=== PATIENT | female | born 1995 | race African-American/Black ===

== ENCOUNTER 2017-01-12 12:18 | Emergency (ER) | payer OTHER ==
--- NOTE | ~2017-01-12 | US84 ---
[id number] [address] [id number] E MR#: [id number] Acc #: [id number] NAME: EMILY COLLINS : 1995 SEX: F STUDY DATE/TIME: 01/12/2017 14:25 UNIT: SED ROOM: STUDY DESCRIPTION: US LE Veins Complete Shawn Stdy Attending Physician: Luis Angel Botello Ordering Physician: Physician Non-Staff Primary Care Physician: Gabriela Severino MEDICAL IMAGING REPORT This report is preliminary unless electronic signature is present. EXAM Bilateral lower extremity Doppler venous ultrasound, 01/12/2017. HISTORY Bilateral lower extremity swelling/edema for 1 week. COMPARISON None TECHNIQUE Real-time sun-scale, color Doppler, and SPECTRAL Doppler images were performed from the bilateral lower extremity veins from the groin through the calf regions. The study, according to the technologist, is technically challenging and limited secondary to patient's body habitus. FINDINGS The left peroneal vein cannot be satisfactorily visualized. The remainder of the bilateral extreme veins demonstrate normal flow, compressibility, and/or augmentation. No deep venous thrombosis is seen. IMPRESSION Study is limited secondary to patient's body habitus. The left peroneal vein could not be satisfactorily visualized. Otherwise, no right or left lower extremity deep venous thrombosis is seen. Dictated by... Arlyn Rodas M.D. THIS IS AN ELECTRONICALLY VERIFIED REPORT Arlyn Rodas M.D. at 01/13/2017 10:02 AM MARTY/simin TD: 01/12/2017 16:55 JOB #: [id number] MEDICAL IMAGING REPORT Page 1 of 1
--- NOTE | ~2017-01-12 | CT16 ---
[facility] A Service of [facility] RADIOLOGY TEXT RESULTS PATIENT: EMILY COLLINS LOCATION: SED : [birth year] UNIT #: [id number] AGE: [address]: HERMILA BUENROSTRO SEX: F ORDER DR: [id number] [place] [id number] E MR#: [id number] Acc #: [id number] NAME: EMILY COLLINS : 1995 SEX: F STUDY DATE/TIME: 01/12/2017 18:22 UNIT: SED ROOM: STUDY DESCRIPTION: CT Angio Chest for PE Attending Physician: Alexis Buenrostro Ordering Physician: Alexis Buenrostro Primary Care Physician: Gabriela Severino MEDICAL IMAGING REPORT This report is preliminary unless electronic signature is present. EXAM Chest CT angiogram with contrast. DATE OF STUDY 01/12/2017 PROCEDURE Axial contrast-enhanced chest CT angiogram with three-dimensional reformats. This CT exam was performed with one or more of the following radiation dose reduction techniques: automatic exposure control, adjustment of mA and/or kV according to patient size, and iterative reconstruction. COMPARISON None. HISTORY Elevated D-dimer and short of air for one week. FINDINGS There is no pulmonary infiltrate, pleural effusion, pneumothorax or suspicious nodule. Bolus-timing is good, and there is no evidence of pulmonary embolism and the thoracic aorta is normal in caliber. There is no mediastinal mass or adenopathy. Images of the upper abdomen are unremarkable. IMPRESSION Normal/negative chest CT angiogram. Dictated by... Jimmie Winkler M.D. [facility] A Service of [facility] RADIOLOGY TEXT RESULTS PATIENT: EMILY COLLINS LOCATION: SED : [birth year] UNIT #: [id number] AGE: [address]: HERMILA BUENROSTRO SEX: F ORDER DR: THIS IS AN ELECTRONICALLY VERIFIED REPORT Jimmie Winkler M.D. at 01/14/2017 5:32 PM TEV/jt TD: 01/12/2017 21:36 JOB #: [id number] MEDICAL IMAGING REPORT Page 1 of 1
[~2017-01-12 12:18] MED LIST: BACTRIM 400-801 TA1 PO; FAMOTIDINE20 MG PO; MEDROL4 MG/DOSE- PO; NO MEDICATIONS; PHENERGAN25 MG PO; PYRIDIUM PO; TAMIFLU75 M1 PO; ZOFRANODT PO
[2017-01-12 17:55] LABS: ALBUMIN SERUM 3.6 g/dL (3.5-5.0); BILIRUBIN,TOTAL 0.3 mg/dL (0.2-2.0); BUN/CREATININE RATIO 17.14; CALCIUM SERUM 9.1 mg/dL (8.4-10.2); CREATININE SERUM 0.7 mg/dL (0.6-1.4); GLOM FILT RATE Estimated 141.5 mL/min (>60); POTASSIUM 4.2 mmol/L (3.5-5.1); PROTEIN TOTAL SERUM 8.3 g/dL (6.0-8.3)
== END 2017-01-12 19:40 | disposition home or self-care (01) ==
LOC: SED 12:18
PROVIDERS: Nurse Practitioner
DX: M79.671 Pain in right foot (principal); M79.672 Pain in left foot; E11.9 Type 2 diabetes mellitus without complications; I10 Essential (primary) hypertension; F32.9 Major depressive disorder, single episode, unspecified; J45.909 Unspecified asthma, uncomplicated; Z90.49 Acquired absence of other specified parts of digestive tract
CPT/HCPCS: 36415; 71275; 80053; 84703; 85379; 93970; 96372; 99284; J1885; Q9967

== ENCOUNTER 2017-01-17 17:19 | Emergency (ER) | payer OTHER | END 2017-01-17 19:49 | disposition home or self-care (01) | LOC: SED 17:19 | DX: J02.9 Acute pharyngitis, unspecified (principal); J45.909 Unspecified asthma, uncomplicated | CPT/HCPCS: 87651; 96372; 99283; J0561 ==